=== PATIENT | female | born 1975 | race Two or more races ===

== ENCOUNTER 2018-06-06 09:29 | Outpatient (CLI) | payer OTHER ==
[~2018-06-06] VITALS: Ht 160 cm; Wt 59.0 kg
== END 2018-06-06 09:45 | disposition home or self-care (01) ==
LOC: OFIC 805 09:29
DX: K21.9 Gastro-esophageal reflux disease without esophagitis (principal); R07.0 Pain in throat; J03.80 Acute tonsillitis due to other specified organisms; R42 Dizziness and giddiness

== ENCOUNTER 2019-04-30 06:35 | Day surgery (SDC) | payer OTHER ==
[~2019-04-30 06:35] MED LIST: SYNTHROID100 MCG; SYNTHROID112 MCG
== END 2019-04-30 16:40 | disposition home or self-care (01) ==
LOC: CIR.AMB 06:35
DX: K64.8 Other hemorrhoids (principal)